=== PATIENT | male | born 1985 | race African-American/Black ===

== ENCOUNTER 2019-04-14 15:14 | Emergency (ER) | payer MEDICAID ==
[~2019-04-14] VITALS: Ht 175.3 cm; Wt 96.0 kg
[2019-04-14] MEDS ORDERED: IBUPROFEN 800MG TABLET PO ONE (18:15)
[2019-04-14 19:15] VITALS: BP 121/79
== END 2019-04-14 19:18 | disposition home or self-care (01) ==
LOC: ER 15:14
DX: S43.421A Sprain of right rotator cuff capsule, initial encounter (principal); T14.90XA Injury, unspecified, initial encounter; X50.0XXA Overexertion from strenuous movement or load, initial encounter; Y93.89 Activity, other specified; Y92.89 Other specified places as the place of occurrence of the external cause; Y99.8 Other external cause status
CPT/HCPCS: 73030; 99283

== ENCOUNTER 2023-05-07 06:13 | Emergency (ER) | payer MEDICAID, OTHER ==
[~2023-05-07] VITALS: Ht 177.8 cm; Wt 88.0 kg
== END 2023-05-07 08:34 | disposition home or self-care (01) ==
LOC: ER 06:13
DX: R51.9 Headache, unspecified (principal); Z04.1 Encounter for examination and observation following transport accident; Z98.890 Other specified postprocedural states; V89.2XXA Person injured in unspecified motor-vehicle accident, traffic, initial encounter; Y93.89 Activity, other specified; Y92.89 Other specified places as the place of occurrence of the external cause; Y99.8 Other external cause status
CPT/HCPCS: 99284

== ENCOUNTER 2023-11-04 17:43 | Emergency (ER) | payer MEDICAID ==
[~2023-11-04] VITALS: Ht 177.8 cm; Wt 97.0 kg
[2023-11-04] MEDS ORDERED: PROPOFOL 200MG/20ML VIAL IV PRN (18:45)
[2023-11-04] MEDS: MORPHINE SULFATE 4 MG/ML INJ (FOR IV/IM USE) IV ONE (19:02)
[2023-11-04] MEDS: ONDANSETRON HCL 4MG/2ML INJ IV ONE (19:02)
[2023-11-04 19:15] VITALS: O2SAT 100
[2023-11-04 19:20] VITALS: TEMP 36.89184
[2023-11-04] MEDS: KETAMINE HCL 50 MG/ML 10ML IV ONE (19:43)
[2023-11-04] MEDS ORDERED: IBUP-2028 PO (19:52)
[2023-11-04 20:15] VITALS: BP 122/66; PULSE 104; RESP 14; O2SAT 96
== END 2023-11-04 20:34 | disposition home or self-care (01) ==
LOC: ER 17:43
DX: S93.05XA Dislocation of left ankle joint, initial encounter (principal); Z98.890 Other specified postprocedural states; W18.39XA Other fall on same level, initial encounter; Y93.89 Activity, other specified; Y92.89 Other specified places as the place of occurrence of the external cause; Y99.8 Other external cause status
CPT/HCPCS: 73600; 73610; 27840; 96374; 96375; 99152; 99285; J3490; J2405; J2704; J2270; Z7610 ×6